=== PATIENT | female | born 1980 | race Caucasian/White ===

== ENCOUNTER 2018-02-11 09:58 | Emergency (ER) | payer BC ==
[~2018-02-11] VITALS: Ht 149.9 cm; Wt 75.3 kg
[2018-02-11 10:12] LABS: URINE BILIRUBIN NEGATIVE (Negative); URINE BLOOD NEGATIVE (Negative); URINE CLARITY CLEAR; URINE COLOR YELLOW; URINE GLUCOSE-RANDOM NEGATIVE (Negative); URINE KETONES NEGATIVE (Negative); URINE LEUKOCYTES-REFLEX TRACE (Negative); URINE NITRITE-REFLEX NEGATIVE (Negative); URINE PROTEIN NEGATIVE (Negative); URINE SPECIFIC GRAVITY 1.025 (1.005-1.030); URINE UROBILINOGEN 0.2 E.U./dl (0.2-1.0)
[2018-02-11 10:23] LABS: HEMATOCRIT 42.4 % (37.0-47.0); HEMOGLOBIN 14.4 gm/dL (12.0-15.0); MCH 28.6 pg (26.0-34.0); MCV 84.2 fL (80.0-100.0); MPV 8.7 fl. (7.2-11.1); NUCLEATED RBCS 0 /100WBC; PLATELET COUNT* 220 thou/uL (150-400); RBC 5.03 mil/uL (4.20-5.00); RDW-CV 13.2 % (10.5-14.5); WBC 16.6 thou/uL (4.0-11.0)
[2018-02-11 10:25] LABS: BACTERIA-REFLEX 1-9 Few /HPF (None Seen); CASTS None Seen /LPF (None Seen); CRYSTALS None Seen /LPF (None Seen); MUCUS 4-6 Moderate strn/LPF (None Seen); SQUAMOUS 4-10 Moderate /LPF (0-3); URINE RBC 3-10 Few /HPF (0-2); URINE WBC-REFLEX 0-5 Rare /HPF (0-5)
[2018-02-11] MEDS ORDERED: ORTHO TRI-CYCL1 EAC1 PO (10:31)
[2018-02-11] MEDS ORDERED: PRENATAL PO (10:32)
[2018-02-11 10:40] LABS: CALCIUM 8.8 mg/dL (8.5-10.1); CREATININE 0.9 mg/dL (0.6-1.3); POTASSIUM 3.3 mmol/L (3.5-5.1)
[2018-02-11 10:44] LABS: ABSOLUTE LYMPHOCYTES 0.8 thou/uL (0.8-5.3); ABSOLUTE MONOCYTES 0.3 thou/uL (0.0-1.2); ABSOLUTE NEUTROPHILS 15.4 thou/uL (1.6-8.1); PLATELET ESTIMATE ADEQUATE
[2018-02-11 10:45] LABS: ANISOCYTOSIS 1+; POIKILOCYTOSIS 1+
[2018-02-11 10:52] LABS: ALBUMIN 3.7 g/dL (3.4-5.0); TOTAL BILIRUBIN 0.7 mg/dL (<0.1-1.0); TOTAL PROTEIN 7.6 g/dL (6.4-8.2)
[2018-02-11] MEDS ORDERED: CIPRO250 M2 PO (13:43)
[2018-02-11] MEDS ORDERED: ZOFRAN4 MG PO (13:43)
[2018-02-11] MEDS ORDERED: NORCO 5-325 TA1 EACH PO (13:43)
[2018-02-11] MEDS ORDERED: FLOMAX0.4 MG PO (13:43)
[2018-02-11 14:07] VITALS: BP 122/78
== END 2018-02-11 14:07 | disposition home or self-care (01) ==
LOC: M.ERS 09:58
PROVIDERS: Nurse Practitioner Family
DX: N20.1 Calculus of ureter (principal); R11.2 Nausea with vomiting, unspecified

== ENCOUNTER → 2018-04-09 | Outpatient (CLI) | payer BC ==
[~2018-04-09] MED LIST: CIPRO250 M2 PO; FLOMAX0.4 MG PO; NORCO 5-325 TA1 EACH PO; ORTHO TRI-CYCL1 EAC1 PO; PRENATAL PO; ZOFRAN4 MG PO
== END ==
LOC: M.ULTRA 15:49
DX: N28.89 Other specified disorders of kidney and ureter (principal); N20.2 Calculus of kidney with calculus of ureter

== ENCOUNTER 2018-09-18 10:55 | Emergency (ER) | payer OTHER ==
[~2018-09-18] VITALS: Ht 149.9 cm; Wt 79.4 kg
[2018-09-18 11:09] VITALS: BP 141/90
[2018-09-18] MEDS ORDERED: HYDROCODONE-AP1 EAC6 PO (11:10)
== END 2018-09-18 11:26 | disposition home or self-care (01) ==
LOC: M.ERS 10:55
DX: E34.51 Complete androgen insensitivity syndrome (principal); M65.4 Radial styloid tenosynovitis [de Quervain]; Z98.890 Other specified postprocedural states